=== PATIENT | male | born 1945 | race Caucasian/White ===

== ENCOUNTER 2017-12-05 14:21 | Emergency (ER) | payer OTHER ==
[~2017-12-05] VITALS: Ht 177.8 cm; Wt 112.0 kg
[~2017-12-05 14:21] MED LIST: COLACE100 MG PO; LACRI LUBE1 OIN OP; NORCO1 TA2 PO
[2017-12-05 14:53] VITALS: BP 155/87
== END 2017-12-05 14:53 | disposition home or self-care (01) ==
LOC: ED 14:21
DX: H10.9 Unspecified conjunctivitis (principal); I10 Essential (primary) hypertension